=== PATIENT | male | born 1975 | race African-American/Black ===

== ENCOUNTER 2018-09-19 07:25 | Emergency (ER) | payer BC ==
[~2018-09-19] VITALS: Ht 188 cm; Wt 106.6 kg
[2018-09-19 07:30] VITALS: BP 153/94
[2018-09-19] MEDS: FAMOTIDINE 20 MG TABLET. PO ONE (07:51)
[2018-09-19] MEDS: predniSONE 20 MG TABLET PO ONE (07:52)
[2018-09-19] MEDS: hydrOXYzine PAMOATE 25 MG CAPSULE PO ONE (07:52)
[2018-09-19] MEDS ORDERED: PRED20TA PO (07:55)
--- NOTE | 2018-09-19 07:57 | PHYS DOC ---
Past Medical History Additional Past Medical Histor: DVT/PE Adult General Chief Complaint Chief Complaint: OTHER COMPLAINTS HPI HPI Patient is a pleasant 42-year-old male who presents to the emergency department for evaluation. He states as he was getting off of work this morning he noticed some itching on the bottom of his left foot, and he states it felt a little warm and looked a little red. He did not have any pain in that area. He states that he also noticed some swelling to his lips, more on the left than the right , and more in his lower than upper lip, but present on both. He denies any shortness of breath, difficulty swallowing, or voice changes. He denies any dizziness or lightheadedness. He states he was recently at the dentist, and was given a prescription for pain medication and an antibiotic, which she thinks was azithromycin. The patient also takes warfarin, for history of venous thromboembolic disease. He states that his last INR was a few weeks ago and was 1.7. He denies any other recent medication changes. He does not have any family history of similar episodes, no known history of angioedema. He does not take any antihypertensive medication. There are no alleviating or exacerbating factors to the patient's symptoms. Review of Systems Review of Systems Constitutional: Denies fever or chills [] Eyes: Denies change in visual acuity, redness, or eye pain [] HENT: Denies nasal congestion or sore throat , denies any voice changes or dental pain.[] Respiratory: Denies cough or shortness of breath [] Cardiovascular: Has dizziness or lightheadedness[] GI: Denies abdominal pain, nausea, vomiting, bloody stools or diarrhea [] Integument: Denies rash or skin lesions except as noted in the history of present illness [] Neurologic: Denies headache, focal weakness or sensory changes [] Allergies Allergies Allergies Coded Allergies Type Severity Reaction Last Updated Verified No Known Drug Allergies 09/19/18 No Physical Exam Physical Exam PHYSICAL EXAM: CONSTITUTIONAL: Well developed, well nourished HEAD: normocephalic, atraumatic EENT: PERRL, EOMI. Conjunctivae normal color, sclerae non-icteric; moist mucous membranes. There is mild soft tissue swelling noted to the left upper and lower lip, without any warmth or erythema or tenderness to palpation. The dentition appears largely unremarkable, without any tenderness or evidence of dental abscess. The soft tissues the posterior pharynx unremarkable without any pharyngeal edema. The voice is normal. There is pain. NECK: Supple, non-tender; no meningismus. LUNGS: Lungs CTA, breathing even and unlabored. Normal air movement. HEART: Regular rate and rhythm, no murmur CHEST: No deformity; non-tender ABDOMEN: The abdomen is soft, and non-tender, no masses or bruits. EXTREM: Normal ROM; no deformity, no calf tenderness. Normal pulses palpable in all extremities. There is no pedal edema. SKIN: No rash; no diaphoresis. There is no warmth or erythema or skin lesions noted on the right foot. There are no urticarial lesions noted. NEURO: Alert; normal speech and cognition; CN's grossly intact; strength grossly intact without focal deficit. BACK: No CVA TTP. EKG EKG [] Radiology/Procedures Radiology/Procedures [] Course & Med Decision Making Course & Med Decision Making The exact etiology of the patient's symptoms is unclear. He denies any trauma to suggest a bruise as the cause of his symptoms. He does not have a family history of angioedema, it is certainly possible this is a reaction to recent medications that he has been on. He has not changed his Coumadin recently. He is no longer taking the antibiotics or pain medication. I discussed expectant management, use of antihistamines, both H1 and H2 blockers, a course of steroids , the need for close PCP follow-up and return precautions for worsening swelling or development of any respiratory issues. The patient expressed verbal understanding. Dragon Disclaimer Dragon Disclaimer This electronic medical record was generated, in whole or in part, using a voice recognition dictation system. Departure Departure Impression: Primary Impression: Allergic reaction Disposition: 01 HOME, SELF-CARE Condition: STABLE Patient Instructions: Allergies, Generic Additional Instructions: Take Benadryl 25-50 mg every 6 hours for the next 3 days. Use caution as this may cause sedation. Additionally, take Pepcid AC 10 mg twice daily for the next 3 days. This medicine is available [id number]. Use the prescribed steroids as instructed. Return to medical care for any new, or worsening symptoms, the development of shortness of breath, new rash, dizziness lightheadedness, fevers, or any other new, or concerning symptoms. Scripts Prednisone (PREDNISONE) 20 Mg Tablet 40 MG PO DAILY for 3 Days, #6 TAB Begin 09/20/18 Prov: REJI LAM MD 09/19/18 REJI LAM MD Sep 19, 2018 07:57
== END 2018-09-19 08:42 | disposition home or self-care (01) ==
LOC: ER 07:25
DX: T78.49XA Other allergy, initial encounter (principal); R42 Dizziness and giddiness; X58.XXXA Exposure to other specified factors, initial encounter
CPT/HCPCS: 99284; J7512; Q0177; 99283